=== PATIENT | female | born 1970 | race African-American/Black ===

== ENCOUNTER 2021-02-07 08:02 | Inpatient (IN) | payer OTHER ==
[~2021-02-07] VITALS: Ht 162.6 cm; Wt 54.4 kg
[2021-02-07] MEDS ORDERED: METHYLPREDNISOLONE SOD SUCC 125 MG/2 ML VIAL IV STA (08:14)
[2021-02-07] MEDS ORDERED: IPRATROPIUM BROMIDE (0.02%) 0.5MG/2.5ML NEB HHN STA (08:14)
[2021-02-07] MEDS ORDERED: ALBUTEROL (0.083%) 2.5MG/3ML NEB HHN STA (08:14)
[2021-02-07 08:43] LABS: BASOPHILS % 0.6 % (0.0-2.0); HEMATOCRIT. 39.6 % (36.0-48.0); HEMOGLOBIN. 12.4 g/dL (12.0-16.0); LYMPHOCYTES % 25.3 % (20.0-50.0); MEAN CORPUSCULAR HEMOGLOBIN 23.8 pg (28.0-32.0); MEAN PLATELET VOLUME 8.7 fl (7.4-10.4); MONOCYTES % 9.9 % (2.0-8.0); NEUTROPHILS % 63.2 % (40.0-76.0); PLATELET 230 x1000/uL (130-400); RED BLOOD CELL COUNT 5.21 mill/uL (4.2-5.4); RED CELL DISTRIBUTION WIDTH 20.2 % (11.6-14.6)
[2021-02-07 08:47] LABS: CHLORIDE 106 mEq/L (98-107)
[2021-02-07] MEDS ORDERED: ASPIRIN 81MG TABLET PO ONE (09:15)
[2021-02-07] MEDS ORDERED: FUROSEMIDE 40MG/4ML VIAL IV ONE (09:15)
[2021-02-07] MEDS ORDERED: NITROGLYCERIN 0.4MG TABLET SL SL ONE (09:30)
[2021-02-07] MEDS ORDERED: NITROGLYCERIN OINT 1GM/INCH UDPKT TD ONE (09:30)
[2021-02-07] MEDS ORDERED: NITROGLYCERIN 50MG PREMIX 250 ML IV ONE (14:15)
[2021-02-07] MEDS ORDERED: NITROGLYCERIN 50MG PREMIX 250 ML IV SCH (14:30)
[2021-02-07] MEDS ORDERED: ONDANSETRON HCL 4MG/2ML INJ IV PRN (14:45)
[2021-02-07] MEDS ORDERED: ACETAMINOPHEN 325MG TABLET PO PRN (14:45)
[2021-02-07 14:55] LABS: BG BASE EXCESS -1.8 mmol/L (-2.0-2.0); BG CARBOXYHEMOGLOBIN 0.4 % (0.5-1.5); BG DEOXYHEMOGLOBIN 0.4 % (0.0-5.0); BG FRACTION INSPIRED OXYGEN 100; BG HCO3 ACT 23.1 mmol/L (22.0-26.0); BG METHEMOGLOBIN 0.2 % (0.0-1.5); BG OXYGEN SATURATION 99.6 % (92.0-98.5); BG PCO2 39.9 mmHg (35.0-45.0); BG PH 7.381 (7.350-7.450); BG PO2 448.5 mmHg (75.0-100.0); BG SAMPLE SITE RIGHT BRACHIAL; BG TOTAL HEMOGLOBIN 12.6 g/dL (12.0-18.0); BG VENT MODE MASK - NRB
[2021-02-07] MEDS ORDERED: HYDRALAZINE 20MG/ML VIAL IV NR (15:00)
[2021-02-07] MEDS: METHYLPREDNISOLONE SOD SUCC 40 MG/ML VIAL IV SCH ×2 (15:00→22:10)
[2021-02-07] MEDS: FUROSEMIDE 40MG/4ML VIAL IVP SCH (17:00)
[2021-02-07] MEDS: FAMOTIDINE 20MG TABLET PO SCH (21:00)
[2021-02-07] MEDS: HYDRALAZINE HCL 100MG TABLET PO SCH (22:10)
[2021-02-07] MEDS: CLONIDINE 0.1MG TABLET PO SCH (22:10)
[2021-02-08] MEDS: HYDRALAZINE HCL 100MG TABLET PO SCH ×3 (06:49→21:08)
[2021-02-08] MEDS: CLONIDINE 0.1MG TABLET PO SCH (06:50)
[2021-02-08] MEDS: METHYLPREDNISOLONE SOD SUCC 40 MG/ML VIAL IV SCH ×3 (06:50→21:07)
[2021-02-08 09:00] VITALS: BP 163/120
[2021-02-08 09:30] VITALS: BP 163/120
[2021-02-08] MEDS: FUROSEMIDE 40MG/4ML VIAL IVP SCH ×2 (10:19→17:13)
[2021-02-08 12:00] VITALS: BP 104/75
[2021-02-08] MEDS: CLONIDINE 0.2MG TABLET PO SCH ×2 (14:00→21:07)
[2021-02-08 16:00] VITALS: BP 156/96
[2021-02-08] MEDS: ENOXAPARIN 30MG/0.3ML SYR SUBCUT SCH (17:14)
[2021-02-08 20:00] VITALS: BP 152/116
[2021-02-08] MEDS: FAMOTIDINE 20MG TABLET PO SCH (21:08)
[2021-02-08] MEDS: IPRATROPIUM/ALBUTEROL 0.5-3(2.5)MG/3ML NEB HHN SCH (21:32)
[2021-02-09] VITALS: BP 128/84
[2021-02-09] MEDS: IPRATROPIUM/ALBUTEROL 0.5-3(2.5)MG/3ML NEB HHN SCH ×4 (01:59→22:04)
[2021-02-09 04:00] VITALS: BP 146/114
[2021-02-09] MEDS: CLONIDINE 0.2MG TABLET PO SCH ×3 (06:38→20:59)
[2021-02-09] MEDS: METHYLPREDNISOLONE SOD SUCC 40 MG/ML VIAL IV SCH ×2 (06:38→14:00)
[2021-02-09] MEDS: HYDRALAZINE HCL 100MG TABLET PO SCH ×3 (06:38→20:59)
[2021-02-09 07:57] LABS: CLARITY URINE CLEAR (CLEAR); COLOR URINE YELLOW (YELLOW); KETONES URINE NEGATIVE (NEGATIVE); LEUKOCYTE ESTERASE URINE NEGATIVE (NEGATIVE); NITRITE URINE NEGATIVE (NEGATIVE); OCCULT BLOOD URINE NEGATIVE (NEGATIVE); PH URINE 5.5 (4.5-8.0); PROTEIN URINE 3+ (NEGATIVE); UROBILINOGEN URINE 0.2 E.U./dL (0.2-1.0)
[2021-02-09 08:00] VITALS: BP 160/112
[2021-02-09] MEDS: METOPROLOL TARTRATE 25MG TABLET PO SCH ×2 (09:25→21:00)
[2021-02-09] MEDS: FUROSEMIDE 40MG/4ML VIAL IVP SCH ×2 (09:25→17:00)
[2021-02-09 12:00] VITALS: BP 115/81
[2021-02-09 13:03] LABS: HEPATITIS B SURFACE ANTIGEN NEGATIVE
[2021-02-09 16:00] VITALS: BP 133/106
[2021-02-09] MEDS: ENOXAPARIN 30MG/0.3ML SYR SUBCUT SCH ×2 (16:30→17:54)
[2021-02-09 20:00] VITALS: BP 136/110
[2021-02-09] MEDS: FAMOTIDINE 20MG TABLET PO SCH (20:59)
[2021-02-09] MEDS: FUROSEMIDE 40MG TABLET PO SCH (20:59)
[2021-02-09] MEDS ORDERED: LORAZEPAM 1MG TABLET PO PRN (22:00)
[2021-02-09] MEDS: GUAIFENESIN/DM 600MG/30MG ER TAB 12HR PO PRN (22:08)
[2021-02-10] VITALS: BP 129/81
[2021-02-10] MEDS: IPRATROPIUM/ALBUTEROL 0.5-3(2.5)MG/3ML NEB HHN SCH ×3 (02:27→12:34)
[2021-02-10 04:00] VITALS: BP 111/75
[2021-02-10] MEDS: CLONIDINE 0.2MG TABLET PO SCH ×2 (06:51→12:53)
[2021-02-10] MEDS: HYDRALAZINE HCL 100MG TABLET PO SCH ×2 (06:51→12:53)
[2021-02-10] MEDS: FUROSEMIDE 40MG TABLET PO SCH ×2 (06:51→17:07)
[2021-02-10 08:00] VITALS: BP 138/78
[2021-02-10] MEDS ORDERED: PREDNISONE 20MG TABLET PO SCH (09:00)
[2021-02-10] MEDS: METOPROLOL TARTRATE 25MG TABLET PO SCH (09:04)
[2021-02-10 11:10] LABS: PHOSPHORUS 3.6 mg/dL (2.5-4.9)
[2021-02-10 12:25] VITALS: BP 120/80
[2021-02-10] MEDS: GUAIFENESIN/DM 600MG/30MG ER TAB 12HR PO PRN (12:53)
[2021-02-10] MEDS ORDERED: LACTULOSE 20G/30ML UDC PO NR (14:30)
[2021-02-10 16:00] VITALS: BP 120/88
[2021-02-10 16:08] VITALS: BP 120/88
[2021-02-10] MEDS: ENOXAPARIN 30MG/0.3ML SYR SUBCUT SCH (16:30)
[2021-02-12 09:06] LABS: ANTI-NUCLEAR ANTIBODIES DIRECT Negative (Negative)
[2021-02-12] MEDS ORDERED: CARV6.2548 MT (09:23)
[2021-02-12] MEDS ORDERED: LOSA100T32 MT (09:23)
[2021-02-12] MEDS ORDERED: CLON0.2T MT (09:23)
[2021-02-12] MEDS ORDERED: P20 MT (09:23)
[2021-02-12] MEDS ORDERED: FLUT1DIS3 INH (09:23)
[2021-02-12] MEDS ORDERED: FURO-151 MT (09:23)
[2021-02-12] MEDS ORDERED: ALBU18HF2 IH (09:23)
== END 2021-02-10 17:20 | disposition home or self-care (01) | DRG 194 ==
LOC: ER 08:02 → EDBD 08:02 → EDBEDREQ 10:44 → EDBEDREQTM 10:44 → MICUSO 22:12 → 6EST 02-08 09:34 → 6WST 02-08 09:35
PROVIDERS: ADMIT Internal Medicine; ATTEND Internal Medicine
PROC: 5A09357 Assistance with Respiratory Ventilation, Less than 24 Consecutive Hours, Continuous Positive Airway Pressure (ICD-10-PCS; principal; 2021-02-07)
DX: I13.0 Hypertensive heart and chronic kidney disease with heart failure and stage 1 through stage 4 chronic kidney disease, or unspecified chronic kidney disease (principal); J96.00 Acute respiratory failure, unspecified whether with hypoxia or hypercapnia; E43 Unspecified severe protein-calorie malnutrition; N17.9 Acute kidney failure, unspecified; J68.0 Bronchitis and pneumonitis due to chemicals, gases, fumes and vapors; I50.23 Acute on chronic systolic (congestive) heart failure; E87.5 Hyperkalemia; F17.210 Nicotine dependence, cigarettes, uncomplicated; N18.9 Chronic kidney disease, unspecified; Z20.822 Contact with and (suspected) exposure to COVID-19; R74.01 Elevation of levels of liver transaminase levels; R80.9 Proteinuria, unspecified; Z68.20 Body mass index [BMI] 20.0-20.9, adult
CPT/HCPCS: 36415; 36600; 71045; 76770; 80048; 80053; 80061; 81003; 82375; 82570; 82805; 83036; 83735; 83880; 84100; 84156; 84484; 85025; 86038; 86160; 86592; 86803; 87340; 87426; 93005; 94640; 94660; 99291; C1893; J0360; J1650; J1940; J2920; J2930; J3490; J7512

== ENCOUNTER 2021-02-14 02:37 | Inpatient (IN) | payer OTHER ==
[~2021-02-14] VITALS: Ht 162.6 cm; Wt 86.2 kg
[~2021-02-14 02:37] MED LIST: ALBU18HF2 IH; CARV6.2548 MT; CLON0.2T MT; FLUT1DIS3 INH; FURO-151 MT; LOSA100T32 MT; P20 MT
[2021-02-14] MEDS ORDERED: METHYLPREDNISOLONE SOD SUCC 125 MG/2 ML VIAL IV STA (03:31)
[2021-02-14] MEDS ORDERED: IPRATROPIUM BROMIDE (0.02%) 0.5MG/2.5ML NEB HHN STA (03:31)
[2021-02-14] MEDS ORDERED: MAGNESIUM 2 G PREMIX 50 ML IV ONE (03:45)
[2021-02-14] MEDS: ALBUTEROL (0.083%) 2.5MG/3ML NEB HHN SCH ×3 (03:50→05:17)
[2021-02-14 03:53] LABS: BASOPHILS % 0.3 % (0.0-2.0); EOSINOPHILS % 0.3 % (0.0-5.0); HEMATOCRIT. 35.2 % (36.0-48.0); HEMOGLOBIN. 10.8 g/dL (12.0-16.0); LYMPHOCYTES % 12.1 % (20.0-50.0); MEAN CORPUSCULAR HEMOGLOBIN 22.3 pg (28.0-32.0); MEAN CORPUSCULAR VOLUME 72.9 fL (81.0-99.0); MEAN PLATELET VOLUME 8.4 fl (7.4-10.4); NEUTROPHILS % 77.3 % (40.0-76.0); PLATELET 221 x1000/uL (130-400); RED BLOOD CELL COUNT 4.83 mill/uL (4.2-5.4); RED CELL DISTRIBUTION WIDTH 19.7 % (11.6-14.6)
[2021-02-14 03:59] LABS: CHLORIDE 102 mEq/L (98-107)
[2021-02-14] MEDS ORDERED: ACETAMINOPHEN 325MG TABLET PO PRN (08:30)
[2021-02-14] MEDS ORDERED: MAGNESIUM/ALUMINUM HYDROXIDE/SIMETHICONE 30ML UDC PO PRN (08:30)
[2021-02-14] MEDS ORDERED: HYDROCODONE/ACETAMINOPHEN 5/325MG TABLET PO PRN (08:30)
[2021-02-14] MEDS ORDERED: MORPHINE SULFATE 2 MG/ML CPJ (NOT FOR IM USE) IV PRN (08:30)
[2021-02-14] MEDS ORDERED: ENOXAPARIN 40MG/0.4ML SYR SUBCUT SCH (08:30)
[2021-02-14] MEDS ORDERED: LORAZEPAM 2MG/ML CPJ IV PRN (08:30)
[2021-02-14] MEDS ORDERED: DIPHENHYDRAMINE 50MG/ML VIAL IV PRN (08:30)
[2021-02-14] MEDS ORDERED: DOCUSATE SODIUM 100MG CAPSULE PO PRN (08:30)
[2021-02-14] MEDS ORDERED: NALOXONE HCL 0.4MG/ML VIAL IV PRN (09:00)
[2021-02-14] MEDS: ENOXAPARIN 30MG/0.3ML SYR SUBCUT SCH (10:53)
[2021-02-14] MEDS: CLONIDINE 0.1MG TABLET PO PRN ×2 (10:53→18:11)
[2021-02-14] MEDS: HYDRALAZINE 20MG/ML VIAL IV PRN ×2 (10:54→20:26)
[2021-02-14] MEDS: IPRATROPIUM/ALBUTEROL 0.5-3(2.5)MG/3ML NEB HHN PRN (12:19)
[2021-02-14] MEDS: SODIUM CHLORIDE 0.9% INJ 3ML FLUSH IVF SCH ×2 (14:03→22:00)
[2021-02-14 17:20] VITALS: BP 169/126
[2021-02-14] MEDS: FUROSEMIDE 40MG/4ML VIAL IVP SCH (18:11)
[2021-02-14] MEDS: LOSARTAN POTASSIUM 100 MG TABLET PO SCH (18:11)
[2021-02-14 18:26] VITALS: BP 169/126
[2021-02-14] MEDS: NEO/POLYMYX B SULF/DEXAMETH 0.1% OPHTH SUSP 5ML BOTHEYE SCH ×2 (18:50→20:38)
[2021-02-14 20:00] VITALS: BP 170/122
[2021-02-14] MEDS: GUAIFENESIN 200MG/10ML SUGAR FREE UDC PO PRN (20:35)
[2021-02-14 23:01] LABS: CLARITY URINE CLEAR (CLEAR); COLOR URINE YELLOW (YELLOW); KETONES URINE NEGATIVE (NEGATIVE); LEUKOCYTE ESTERASE URINE NEGATIVE (NEGATIVE); NITRITE URINE NEGATIVE (NEGATIVE); OCCULT BLOOD URINE NEGATIVE (NEGATIVE); PROTEIN URINE 2+ (NEGATIVE); SPECIFIC GRAVITY URINE 1.012 (1.005-1.030); UROBILINOGEN URINE 0.2 E.U./dL (0.2-1.0)
[2021-02-14 23:27] LABS: *AMPHETAMINES SCREEN URINE NEGATIVE (NEGATIVE); *BARBITURATES SCREEN URINE NEGATIVE (NEGATIVE); *BENZODIAZEPINES SCREEN URINE NEGATIVE (NEGATIVE); *COCAINE SCREEN URINE PRESUMTIVE POSITIVE (NEGATIVE); METHADONE URINE SCREEN NEGATIVE (NEGATIVE); OPIATES URINE SCREEN NEGATIVE (NEGATIVE)
[2021-02-14 23:28] LABS: CANNABINOID URINE SCREEN NEGATIVE (NEGATIVE); PHENCYCLIDINE URINE SCREEN NEGATIVE (NEGATIVE)
[2021-02-15] VITALS: BP 159/103
[2021-02-15] MEDS: CLONIDINE 0.1MG TABLET PO PRN (00:47)
[2021-02-15 04:00] VITALS: BP 144/96
[2021-02-15] MEDS: NEO/POLYMYX B SULF/DEXAMETH 0.1% OPHTH SUSP 5ML BOTHEYE SCH ×3 (06:28→17:12)
[2021-02-15] MEDS: SODIUM CHLORIDE 0.9% INJ 3ML FLUSH IVF SCH ×3 (06:29→21:08)
[2021-02-15] MEDS: GUAIFENESIN 200MG/10ML SUGAR FREE UDC PO PRN ×3 (06:53→22:29)
[2021-02-15 08:00] VITALS: BP 113/78
[2021-02-15 08:30] LABS: HEMATOCRIT. 34.6 % (36.0-48.0); HEMOGLOBIN. 10.7 g/dL (12.0-16.0); MEAN CORPUSCULAR HEMOGLOBIN 22.6 pg (28.0-32.0); MEAN CORPUSCULAR VOLUME 73.3 fL (81.0-99.0); MEAN PLATELET VOLUME 9.1 fl (7.4-10.4); PLATELET 207 x1000/uL (130-400); RED BLOOD CELL COUNT 4.72 mill/uL (4.2-5.4); RED CELL DISTRIBUTION WIDTH 19.8 % (11.6-14.6)
[2021-02-15 08:42] LABS: CHLORIDE 104 mEq/L (98-107)
[2021-02-15] MEDS: LOSARTAN POTASSIUM 100 MG TABLET PO SCH (09:05)
[2021-02-15] MEDS: FUROSEMIDE 40MG/4ML VIAL IVP SCH (09:06)
[2021-02-15] MEDS: ENOXAPARIN 30MG/0.3ML SYR SUBCUT SCH (09:06)
[2021-02-15 12:04] LABS: PLATELET ESTIMATE NORMAL
[2021-02-15 12:15] VITALS: BP 169/124
[2021-02-15] MEDS: HYDRALAZINE 20MG/ML VIAL IV PRN (12:26)
[2021-02-15] MEDS: SILDENAFIL CITRATE 20MG TABLET PO SCH ×2 (15:05→21:07)
[2021-02-15] MEDS: PREDNISONE 20MG TABLET PO SCH (15:05)
[2021-02-15 15:45] VITALS: BP 168/134
[2021-02-15] MEDS: DILTIAZEM HCL 60MG TABLET PO SCH (17:17)
[2021-02-15] MEDS: IPRATROPIUM/ALBUTEROL 0.5-3(2.5)MG/3ML NEB HHN PRN (17:56)
[2021-02-15] MEDS ORDERED: DILTIAZEM HCL 30MG TABLET PO SCH (18:00)
[2021-02-15 20:00] VITALS: BP 156/107
[2021-02-16] VITALS: BP 157/88
[2021-02-16] MEDS: NEO/POLYMYX B SULF/DEXAMETH 0.1% OPHTH SUSP 5ML BOTHEYE SCH ×5 (00:10→23:29)
[2021-02-16] MEDS: DILTIAZEM HCL 60MG TABLET PO SCH ×5 (00:11→23:29)
[2021-02-16] MEDS: ZOLPIDEM TARTRATE 5MG TABLET PO PRN ×2 (00:12→23:35)
[2021-02-16 04:00] VITALS: BP 132/86
[2021-02-16] MEDS: GUAIFENESIN 200MG/10ML SUGAR FREE UDC PO PRN ×2 (05:43→20:19)
[2021-02-16] MEDS: SILDENAFIL CITRATE 20MG TABLET PO SCH ×3 (05:47→21:34)
[2021-02-16] MEDS: SODIUM CHLORIDE 0.9% INJ 3ML FLUSH IVF SCH ×3 (05:48→21:34)
[2021-02-16 08:00] VITALS: BP 131/63
[2021-02-16] MEDS: LOSARTAN POTASSIUM 100 MG TABLET PO SCH (09:58)
[2021-02-16] MEDS: PREDNISONE 20MG TABLET PO SCH ×2 (09:58→17:01)
[2021-02-16] MEDS: FUROSEMIDE 40MG/4ML VIAL IVP SCH ×2 (09:58→17:01)
[2021-02-16] MEDS: ENOXAPARIN 30MG/0.3ML SYR SUBCUT SCH (09:58)
[2021-02-16 12:00] VITALS: BP 142/82
[2021-02-16] MEDS: ONDANSETRON HCL 4MG/2ML INJ IV PRN ×2 (12:08→23:31)
[2021-02-16 16:00] VITALS: BP 160/98
[2021-02-16] MEDS ORDERED: CEFTRIAXONE 1,000 MG in DEXTROSE 5% WATER 50 ML IV SCH (16:00)
[2021-02-16 20:00] VITALS: BP 155/97
[2021-02-17] VITALS: BP 161/98
[2021-02-17] MEDS: GUAIFENESIN 200MG/10ML SUGAR FREE UDC PO PRN (03:54)
[2021-02-17 04:00] VITALS: BP 154/100
[2021-02-17] MEDS: DILTIAZEM HCL 60MG TABLET PO SCH ×2 (05:48→12:38)
[2021-02-17] MEDS: SILDENAFIL CITRATE 20MG TABLET PO SCH ×2 (05:48→13:59)
[2021-02-17] MEDS: NEO/POLYMYX B SULF/DEXAMETH 0.1% OPHTH SUSP 5ML BOTHEYE SCH ×2 (05:49→12:38)
[2021-02-17] MEDS: SODIUM CHLORIDE 0.9% INJ 3ML FLUSH IVF SCH ×2 (05:49→13:56)
[2021-02-17] MEDS: FUROSEMIDE 40MG/4ML VIAL IVP SCH ×2 (06:50→06:56)
[2021-02-17 06:55] LABS: BASOPHILS % 0.2 % (0.0-2.0); EOSINOPHILS % 0.1 % (0.0-5.0); HEMOGLOBIN. 11.4 g/dL (12.0-16.0); LYMPHOCYTES % 8.1 % (20.0-50.0); MEAN CORPUSCULAR HEMOGLOBIN 22.7 pg (28.0-32.0); MEAN CORPUSCULAR VOLUME 73.9 fL (81.0-99.0); MONOCYTES % 8.4 % (2.0-8.0); NEUTROPHILS % 83.2 % (40.0-76.0); PLATELET 231 x1000/uL (130-400); RED BLOOD CELL COUNT 5.01 mill/uL (4.2-5.4); RED CELL DISTRIBUTION WIDTH 20.3 % (11.6-14.6)
[2021-02-17 08:30] VITALS: BP 177/117
[2021-02-17] MEDS: CLONIDINE 0.1MG TABLET PO PRN (09:35)
[2021-02-17] MEDS: ENOXAPARIN 30MG/0.3ML SYR SUBCUT SCH (09:35)
[2021-02-17] MEDS: LOSARTAN POTASSIUM 100 MG TABLET PO SCH (09:35)
[2021-02-17] MEDS: PREDNISONE 20MG TABLET PO SCH (09:35)
[2021-02-17 11:25] VITALS: BP 154/79
[2021-02-17 12:00] VITALS: BP 154/63
[2021-02-17] MEDS ORDERED: CLONIDINE 0.2MG TABLET PO SCH (14:00)
== END 2021-02-17 12:20 | disposition home or self-care (01) | DRG 720 ==
LOC: ER 02:37 → 6WST 05:17 → EDBEDREQ 05:28 → EDBEDREQTM 05:28 → ENRESERV 14:41
PROVIDERS: ADMIT Internal Medicine; ATTEND Internal Medicine
DX: A41.9 Sepsis, unspecified organism (principal); J96.01 Acute respiratory failure with hypoxia; I50.23 Acute on chronic systolic (congestive) heart failure; E44.0 Moderate protein-calorie malnutrition; N17.9 Acute kidney failure, unspecified; T40.5X1A Poisoning by cocaine, accidental (unintentional), initial encounter; R65.10 Systemic inflammatory response syndrome (SIRS) of non-infectious origin without acute organ dysfunction; I27.29 Other secondary pulmonary hypertension; I13.0 Hypertensive heart and chronic kidney disease with heart failure and stage 1 through stage 4 chronic kidney disease, or unspecified chronic kidney disease; I27.81 Cor pulmonale (chronic); I42.9 Cardiomyopathy, unspecified; J68.0 Bronchitis and pneumonitis due to chemicals, gases, fumes and vapors; N18.9 Chronic kidney disease, unspecified; D64.9 Anemia, unspecified; D72.829 Elevated white blood cell count, unspecified; E66.9 Obesity, unspecified; E78.5 Hyperlipidemia, unspecified; Z20.822 Contact with and (suspected) exposure to COVID-19; F17.210 Nicotine dependence, cigarettes, uncomplicated; Z86.73 Personal history of transient ischemic attack (TIA), and cerebral infarction without residual deficits; Y92.89 Other specified places as the place of occurrence of the external cause; Z91.14 Patient's other noncompliance with medication regimen; Z99.81 Dependence on supplemental oxygen; Z68.32 Body mass index [BMI] 32.0-32.9, adult; Z88.0 Allergy status to penicillin; Z79.899 Other long term (current) drug therapy; Z71.3 Dietary counseling and surveillance; Z71.51 Drug abuse counseling and surveillance of drug abuser
CPT/HCPCS: 36415; 71045; 80048; 80053; 80305; 81003; 83880; 84443; 84484; 85025; 87426; 93005; 93970; 94640; 99291; J0360; J0696; J1650; J1940; J2405; J2930; J3475; J7060; J7512